=== PATIENT | female | born 2000 | race Caucasian/White ===

== ENCOUNTER 2018-12-14 00:19 | Emergency (ER) | payer MEDICAID, OTHER ==
[~2018-12-14] VITALS: Ht 167.6 cm; Wt 56.7 kg
[2018-12-14] MEDS ORDERED: ONDANSETRON 4 MG (ZOFRAN) ORAL DISSOLVE TAB PO STA (00:33)
[2018-12-14 00:38] LABS: BILIRUBIN,URINE NEGATIVE (NEGATIVE); CLARITY,URINE CLEAR; COLOR,URINE YELLOW; GLUCOSE, URINE (UA) NEGATIVE (NEGATIVE); KETONES,URINE 2+ (NEGATIVE); LEUKOCYTE ESTERASE ,URINE TRACE (NEGATIVE); NITRITE,URINE NEGATIVE (NEGATIVE); PH,URINE 5.5 (5-9); PROTEIN,URINE NEGATIVE (NEGATIVE); UROBILINOGEN,URINE 0.2 MG/DL (NORMAL)
--- NOTE | 2018-12-14 00:39 | ED GI ---
General Chief Complaint: Abdominal/GI Problems Stated Complaint: VOMITING,HEADACHE Source of Information: Patient, Other Exam Limitations: No Limitations History of Present Illness Date Seen by Provider: Dec 14, 2018 Time Seen by Provider: 00:23 Initial Comments Patient presents to ER by private conveyance with chief complaint of intractable nausea vomiting times one day now with headache and feeling dizzy when she stands up. She denies dysuria. She is a with a Nexplanon in her left arm since April 2018. Her last period was last month lasting for 4 weeks. She has some mild discomfort in her epigastric region after vomiting. No history of surgeries on her abdomen. Food does not make it worse. She did recently have a camping trip but did not drink from any unsafe water sources nor does she have any sick contacts nor travel personally outside the [facility]. She has no significant medical history, history of migraines etc. She's not been able take any Tylenol or Motrin for her headache because of her nausea. She does not have anything for nausea home. She denies constipation or diarrhea. Allergies and Home Medications Allergies Coded Allergies: No Known Drug Allergies (Unverified , 12/14/18) Home Medications Ondansetron 4 Mg Tab.rapdis, 4 MG PO Q6H PRN for NAUSEA/VOMITING-1ST LINE Prescribed by: RENÉE FRANCES on 12/14/18 0042 Patient Home Medication List Home Medication List Reviewed: Yes Review of Systems Review of Systems Constitutional: No chills, No diaphoresis; malaise (2 days) EENTM: No Blurred Vision, No Double Vision Respiratory: Denies Cough, Denies Shortness of Air Cardiovascular: Denies Chest Pain, Denies Edema Gastrointestinal: Denies Abdomen Distended, Denies Abdominal Pain, Denies Constipated, Denies Diarrhea; Nausea, Poor Fluid Intake, Vomiting Genitourinary: Denies Burning, Denies Discharge Musculoskeletal: No back pain, No joint pain Past [id number]-[id number]-[id number] Hx Patient Social History Alcohol Use: Occasionally Uses Alcohol Beverage of Choice: Beer Recreational Drug Use: No Smoking Status: Never a Smoker Recent Foreign Travel: No Contact w/Someone Who Travel: No Physical Exam Vital Signs Vital Signs - First Documented 12/14/18 00:24 Temp 98.6 Pulse 104 Resp 18 B/P (MAP) 119/73 (88) Pulse Ox 96 Capillary Refill : Height/Weight/BMI Height: '" Weight: lbs. oz. kg; BMI Method: General Appearance: WD/WN, no apparent distress HEENT: PERRL/EOMI, normal ENT inspection, pharynx normal Neck: full range of motion, normal inspection Respiratory: no respiratory distress, no accessory muscle use Cardiovascular: normal peripheral pulses, regular rate, rhythm, tachycardia ( upper 90s to 102) Peripheral Pulses: 2+ Radial Pulses (R), 2+ Radial Pulses (L) Gastrointestinal: normal bowel sounds, non tender, soft, no organomegaly Neurologic/Psychiatric: alert, oriented x 3 Skin: normal color, warm/dry Progress/Results/Core Measures Results/Orders Lab Results Laboratory Tests Test 12/14/18 00:30 12/14/18 00:34 Range/Units Urine Color YELLOW Urine Clarity CLEAR Urine pH 5.5 5-9 Urine Specific Mccloud >1.030 1.016-1.022 Urine Protein NEGATIVE NEGATIVE Urine Glucose (UA) NEGATIVE NEGATIVE Urine Ketones 2+ H NEGATIVE Urine Nitrite NEGATIVE NEGATIVE Urine Bilirubin NEGATIVE NEGATIVE Urine Urobilinogen 0.2 NORMAL MG/DL Urine Leukocyte Esterase TRACE NEGATIVE Urine RBC (Auto) NEGATIVE NEGATIVE Urine RBC NONE /HPF Urine WBC 2-5 /HPF Urine Squamous Epithelial Cells 5-10 /HPF Urine Crystals NONE /LPF Urine Bacteria NONE /HPF Urine Casts NONE /LPF Urine Mucus MODERATE H /LPF Urine Culture Indicated NO Urine Test NEGATIVE NEGATIVE My Orders Orders - RENÉE FRANCES Ua Culture If Indicated (12/14/18 00:21) Hcg,Qualitative Urine (12/14/18 00:33) Ondansetron Oral Dissolve Tab (Zofran (12/14/18 00:33) Ibuprofen Tablet (Motrin Tablet) (12/14/18 01:15) Medications Given in ED Current Medications Medications Dose Ordered Sig/Joss Route Start Time Stop Time Status Last Admin Dose Admin Ibuprofen 800 mg ONCE ONCE PO 12/14/18 01:15 12/14/18 01:16 DC 12/14/18 01:17 800 MG Vital Signs/I&O 12/14/18 00:24 Temp 98.6 Pulse 104 Resp 18 B/P (MAP) 119/73 (88) Pulse Ox 96 Progress Progress Note #1: Time: 00:37 Progress Note Patient has heart rate 90s at rest. We've offered to check some labs and give her some IV fluids versus doing some oral Zofran and then something for her pain. She's declined any needlestick says she really doesn't like shots and would prefer to avoid them if she can. I think we can treat her with some Zofran ODT and then after she's had a minute for that care can offer her something for her headache. If this works then she can go home and do oral rehydration therapy as her nausea vomiting episode is not been going on for 24 hours yet. We've obtained a urine for urinalysis and will add an hCG however she has a Nexplanon making this rather unlikely. If unable to get control of her symptoms with oral Zofran and then perhaps she would be amenable to IV. Nonacute abdomen. No mesenteric signs. Progress Note #2: Time: 01:24 Progress Note The patient's nausea is gone and after 800 mg of ibuprofen her pain has significantly improved down to a 2 out of 10. We'll going to allow her to go home. Departure Impression Primary Impression: Gastroenteritis Disposition: HOME, SELF-CARE Condition: Improved Departure-Patient Inst. Decision time for Depature: 01:25 Referrals: NO,LOCAL PHYSICIAN (PCP) Primary Care Physician Patient Instructions: [id number] Add. Discharge Instructions: I encourage you to drink lots of fluids especially sports drinks such as Gatorade, Powerade etc. Use the Zofran 1 tablet under the tongue every 6 hours as needed for nausea. Get some rest tomorrow and push lots of fluids. You may develop diarrhea and if this goes on for more than 24 hours of watery stools then you can picker / packer loperamide/Imodium and use 2 tablets followed by one tablet every 4 hours until your diarrhea is no longer watery. If your symptoms persist more than 7-10 days then you should follow-up with your primary care doctor for further evaluation. If you feel you're unable to keep up with your fluid intake or your pain is not treatable with regular Tylenol 1000 mg every 8 hours and/or ibuprofen 800 mg every 8 hours plus an acid tele marketing executive such as omeprazole or Pepcid/Zantac then you should return to the nearest ER for further evaluation. All discharge instructions reviewed with patient and/or family. Voiced understanding. Scripts Ondansetron (Ondansetron Odt) 4 Mg Tab.rapdis 4 MG PO Q6H PRN for NAUSEA/VOMITING-1ST LINE, #14 TAB 0 Refills Prov: RENÉE FRANCES 12/14/18 Work/School Note: Work Release Form Date Seen in the Emergency Department: Dec 14, 2018 Return to Work: Dec 15, 2018 Restrictions: No Restrictions RENÉE FRANCES Dec 14, 2018 00:39
[2018-12-14] MEDS ORDERED: ONDA4TAB11 PO (00:42)
[2018-12-14] MEDS ORDERED: IBUPROFEN 800 MG (MOTRIN) TAB PO ONE (01:15)
[2018-12-14 01:32] VITALS: BP 112/68
== END 2018-12-14 01:29 | disposition home or self-care (01) ==
LOC: ER FS 00:22
DX: K52.9 Noninfective gastroenteritis and colitis, unspecified (principal)
CPT/HCPCS: 81000; 84703; 99283